=== PATIENT | female | born 1965 | race Caucasian/White ===

== ENCOUNTER 2017-06-25 16:19 | Emergency (ER) | payer BC ==
[2017-06-25] MEDS ORDERED: ASPIRIN CHEW 81 MG TABLET PO STA (16:32)
--- NOTE | 2017-06-25 16:35 | ED Physician Documentation ---
PD HPI CHEST PAIN - Stated complaint Stated Complaint: CHEST PX - Chief complaint Chief Complaint: Cardiac - History obtained from History obtained from: Patient - History of Present Illness Timing - onset: Other (51-year-old woman with history of diabetes with 2 episodes of chest pain today, both at rest.The first was from 230 to 3:00. It started at rest. It was a very sharp pain in the right breast which was nonradiating and not associated with shortness of breath, sweatiness, nausea, dizziness. It recurred on the way here briefly while driving, just a few minutes that time. She has never had this before. She was worked up about 7 years ago she says by a insurance processing clerk in [place] for different type of chest pain and the workup at that time was negative. She has no personal history of heart disease, but her father of an [place] presumably at age 57. 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 - Present Medications Home Medications: Ambulatory Orders Medication Instructions Recorded Confirmed Insulin Aspart [Novolog Flexpen] 5 units SUBQ AC 05/02/14 05/02/14 Insulin Glargine [Lantus Solostar] 15 units DAILY 05/02/14 05/02/14 Levothyroxine Sodium 50 mcg PO DAILY 05/02/14 05/02/14 Lovastatin 20 mg PO DAILY 05/02/14 05/02/14 - Allergies Allergies/Adverse Reactions: Allergies Allergy/AdvReac Type Severity Reaction Status Date / Time beef derived (bovine) AdvReac Rash Verified 06/25/17 16:30 pork derived (porcine) AdvReac Rash Verified 06/25/17 16:30 - Social History Smoking Status: Former smoker - Family History Family history: reports: Non contributory PD ED PE NORMAL - Vitals Vital signs reviewed: Yes - General General: Alert and oriented X 3, No acute distress - HEENT HEENT: PERRL, EOMI - Neck Neck: Supple, no meningeal sign, No bony TTP - Cardiac Cardiac: RRR, No murmur - Respiratory Respiratory: No respiratory distress, Clear bilaterally - Abdomen Abdomen: Soft, Non tender - Back Back: No CVA TTP, No spinal TTP - Derm Derm: Normal color, Warm and dry - Extremities Extremities: No edema, No calf tenderness / cord - Neuro Neuro: Alert and oriented X 3, Normal speech - Psych Psych: Normal mood, Normal affect Results - Vitals Vitals: Vital Signs - 24 hr 06/25/17 06/25/17 16:28 16:52 Temperature 37 C Heart Rate 84 79 Respiratory 14 20 Rate Blood Pressure 168/98 H 148/78 H O2 Saturation 99 97 Oxygen O2 Source Room air - EKG (time done) 1634 Rate: Rate (enter#) (72) Rhythm: NSR [place]: Normal Intervals: Normal [place] QRS: Normal Ischemia: Normal ST segments Computer interpretation: Agree with computer - Labs Labs: Laboratory Tests 06/25/17 06/25/17 06/25/17 16:46 16:46 16:46 WBC 7.8 RBC 5.21 Hgb 15.2 Hct 45.1 MCV 86.4 MCH 29.2 MCHC 33.8 RDW 13.4 Plt Count 272 MPV 9.6 Neut # 4.3 Lymph # 2.8 Becker # 0.6 Eos # 0.1 Baso # 0.0 Absolute Nucleated RBC 0.00 Nucleated RBCs 0.0 Sodium 142 Potassium 3.8 Chloride 106 Carbon Dioxide 29 Anion Gap 7.0 BUN 19 Creatinine 0.7 Estimated GFR (MDRD) 88 L Glucose 44 L* POC Whole Bld Glucose Calcium 10.1 Total Bilirubin 0.5 AST 21 ALT 22 Alkaline Phosphatase 75 Total Creatine Kinase 61 CK-MB (CK-2) 1.4 Troponin I < 0.04 Total Protein 8.0 Albumin 4.4 Globulin 3.6 Albumin/Globulin Ratio 1.2 Lipase 47 06/25/17 17:02 WBC RBC Hgb Hct MCV MCH MCHC RDW Plt Count MPV Neut # Lymph # Becker # Eos # Baso # Absolute Nucleated RBC Nucleated RBCs Sodium Potassium Chloride Carbon Dioxide Anion Gap BUN Creatinine Estimated GFR (MDRD) Glucose POC Whole Bld Glucose 39 L* Calcium Total Bilirubin AST ALT Alkaline Phosphatase Total Creatine Kinase CK-MB (CK-2) Troponin I Total Protein Albumin Globulin Albumin/Globulin Ratio Lipase - Rads (name of study) 1v chest Radiology: EMP read contemporaneously (normal) PD MEDICAL DECISION MAKING - ED course ED course: 51-year-old with resolved very atypical chest pain with negative EKG and cardiac markers. No recurrence of pain while in the emergency department and workup was negative save for hypoglycemia. She looks well during the episode of hypoglycemia and declined IV glucose, she says this level of hypoglycemia is not that uncommon for her and after oral glucose felt much better. Departure - Departure Disposition: Home, Self Care Clinical Impression: Chest pain Qualifiers: Chest pain type: unspecified Qualified Code(s): R07.9 - Chest pain, unspecified Condition: Good Record reviewed to determine appropriate education?: Yes Instructions: ED Chest Pain Atypical Unkn Cause Comments: As discussed it seems that the chest pain is unlikely to be from your heart or serious cause. That said return if chest pain recurs immediately, otherwise follow-up with your doctor, call tomorrow and discuss stress testing. Your blood pressure was elevated today on check into the emergency department. This does not mean that you have hypertension, it is a common phenomenon to come to the emergency department and have elevated blood pressure. I recommend that she see her primary care physician within the week to have it rechecked when you are feeling better.
[2017-06-25] MEDS ORDERED: ASPIRIN CHEW 81 MG TABLET ONE (17:08)
[2017-06-25 17:14] LABS: BASOPHILS % (AUTO) 0.5 %; EOSINOPHILS # (AUTO) 0.1 10^3/uL (0.0-0.7); EOSINOPHILS % (AUTO) 1.7 %; HCT - HEMATOCRIT 45.1 % (37.0-47.0); HGB - HEMOGLOBIN 15.2 g/dL (12.0-16.0); LYMPHOCYTES # (AUTO) 2.8 10^3/uL (1.5-3.5); LYMPHOCYTES % (AUTO) 36.1 %; MEAN CORPUSCULAR HEMOGLOBIN 29.2 pg (27.0-31.0); MEAN CORPUSCULAR HGB CONC 33.8 g/dL (32.0-36.0); MEAN CORPUSCULAR VOLUME 86.4 fL (81.0-99.0); MEAN PLATELET VOLUME 9.6 fL (7.9-10.8); MONOCYTES # (AUTO) 0.6 10^3/uL (0.0-1.0); MONOCYTES % (AUTO) 7.1 %; NEUTROPHILS # (AUTO) 4.3 10^3/uL (1.5-6.6); NEUTROPHILS % (AUTO) 54.6 %; RED BLOOD COUNT 5.21 10^6/uL (4.20-5.40); RED CELL DISTRIBUTION WIDTH 13.4 % (12.0-15.0); UNCORRECTED WHITE BLOOD COUNT 7.8 x10^3/uL; WHITE BLOOD COUNT 7.8 x10^3/uL (4.8-10.8)
--- NOTE | 2017-06-25 17:28 | XRAY Preliminary Report ---
Exam: XR Chest 1 View IMPRESSION: Normal single view chest. [facility] SITE ID: [id number]
[2017-06-25 17:30] LABS: ALBUMIN/GLOBULIN RATIO 1.2 (1.0-2.2); BILIRUBIN,TOTAL 0.5 mg/dL (0.2-1.0); CALCIUM 10.1 mg/dL (8.5-10.3); CREATININE 0.7 mg/dL (0.4-1.0); POTASSIUM 3.8 mmol/L (3.5-5.0)
--- NOTE | 2017-06-25 17:31 | XRAY Report ---
EXAM: CHEST RADIOGRAPHY EXAM DATE: 06/25/2017 05:14 PM. CLINICAL HISTORY: Chest pain. COMPARISON: 03/14/2015. TECHNIQUE: 1 view. FINDINGS: Lungs/Pleura: No focal opacities evident. No pleural effusion. No pneumothorax. Mediastinum: Within exam limitations, cardiomediastinal contour is normal. Other: No bony abnormality identified. IMPRESSION: Normal single view chest. [facility] Referring Provider Line: [phone] SITE ID: [id number]
[2017-06-25 17:33] LABS: CREATINE KINASE MB 1.4 ng/mL (0.6-6.3); TROPONIN I < 0.04 ng/mL (<0.49)
[2017-06-25 18:07] VITALS: BP 132/82
== END 2017-06-25 18:05 | disposition home or self-care (01) ==
LOC: ED 16:19
DX: R07.9 Chest pain, unspecified (principal); R03.0 Elevated blood-pressure reading, without diagnosis of hypertension; E03.9 Hypothyroidism, unspecified; E10.649 Type 1 diabetes mellitus with hypoglycemia without coma; Z82.49 Family history of ischemic heart disease and other diseases of the circulatory system; Z87.891 Personal history of nicotine dependence
CPT/HCPCS: 36415; 71010; 80053; 82550; 82553; 83690; 84484; 85025; 93005; 99283; 99285; A9270

== ENCOUNTER 2018-04-22 13:43 | Emergency (ER) | payer BC ==
[2018-04-22 13:50] VITALS: BP 123/69
== END 2018-04-22 14:07 | disposition left against medical advice (07) ==
LOC: ED 13:43
DX: Z53.21 Procedure and treatment not carried out due to patient leaving prior to being seen by health care provider (principal)
CPT/HCPCS: 99281

== ENCOUNTER 2018-07-09 07:07 | Outpatient (CLI) | payer BC ==
[2018-07-09 12:22] LABS: BUN - BLOOD UREA NITROGEN 22 mg/dL (6-20); CALCIUM 9.4 mg/dL (8.5-10.3); CARBON DIOXIDE - CO2 26 mmol/L (21-32); CHLORIDE 107 mmol/L (101-111); CHOL/HDL RATIO 2.5 (<4.4); CHOLESTEROL 202 mg/dL; CREATININE 0.8 mg/dL (0.4-1.0); GFR - MDRD 75 (>89); GLUCOSE 133 mg/dL (70-100); HDL CHOLESTEROL 80 mg/dL; LDL CHOLESTEROL,CALCULATED 110 mg/dL; LDL/HDL RATIO 1.4 (<4.4); SODIUM 140 mmol/L (135-145); VLDL CHOLESTEROL 12 mg/dL
[2018-07-09 12:26] LABS: HB2 TOTAL 15.1 g/dL; HEMOGLOBIN A1C 0.75 g/dL; HEMOGLOBIN A1C % 6.7 % (4.6-6.2)
== END 2018-07-09 07:08 | disposition home or self-care (01) ==
LOC: LAB.WCP 07:07
PROVIDERS: ATTEND Family Medicine
DX: E10.9 Type 1 diabetes mellitus without complications (principal)
CPT/HCPCS: 36415; 80048; 80061; 83036; 83721

== ENCOUNTER 2018-07-13 14:01 | Outpatient (CLI) | payer BC ==
--- NOTE | 2018-07-15 14:05 | DEXA Report ---
Reason: POSTMENOPAUSAL STATUS Procedure Date: 07/13/2018 Accession Number: [id number] / [id number] Procedure: DEX - Dexa Spine and/or Hip CPT Code: FULL RESULT: EXAM: Dexa Spine and/or Hip DATE: 07/13/2018 2:44 PM CLINICAL HISTORY: POSTMENOPAUSAL STATUS TECHNIQUE: Dual energy x-ray absorptiometry (DXA) was performed on a [employer] System. Regions measured are the AP Spine, femoral neck, and if needed forearm. COMPARISON: None. In accordance with the International Society for Clinical Densitometry (ISCD) guidelines, data from previous exams may be reanalyzed using current recommendations and techniques. This is done to allow a more accurate basis for comparison with the current study. FINDINGS: The data for the lumbar spine is as follows: BMD (g/cm/cm) T-SCORE Z-SCORE REGION L1 0.763 -3.1 -3.1 L2 0.816 -3.2 -3.2 L3 0.808 -3.3 -3.3 L4 0.780 -3.5 -3.5 TOTAL 0.793 -3.2 -3.2 NOTE: All evaluable vertebrae are used for classification The data for the hip is as follows: BMD (g/cm/cm) T-SCORE Z-SCORE REGION Neck 0.742 -2.1 -1.6 TOTAL 0.843 -1.3 -1.2 NOTE: The femoral neck or total proximal femur, whichever is lowest, is used for classification. IMPRESSION: THE WHO CLASSIFICATION BASED ON THE INTERNATIONAL REFERENCE STANDARD IS OSTEOPOROSIS. THE FRACTURE RISK IS HIGH. RECOMMENDATION: Patients with diagnosis of osteoporosis or osteopenia should have regular bone mineral density assessment. For those eligible for Medicare, routine testing is allowed once every 2 years. Testing frequency can be increased for patients who have rapidly progressing disease or for those who are receiving medical therapy to restore bone mass. COMMENT: World Health Organization (WHO) definitions for osteoporosis and osteopenia: NORMAL BMD: T-score at -1.0 or higher, fracture risk is low OSTEOPENIA BMD: T-score between -1.0 and -2.5, fracture risk is increased. OSTEOPOROSIS BMD: T-score at -2.5 or lower, fracture risk is high. National Osteoporosis Foundation recommends: 1. Obtain adequate dietary calcium (at least 1200 mg per day) and vitamin D (400-800 international units per day). 2. Participate, as appropriate, in regular weightbearing and muscle-strengthening exercise. 3. Avoid tobacco use and reduce alcohol and caffeine intake. 4. For more detailed information see the website at www.NOF.org.
== END 2018-07-13 14:02 | disposition home or self-care (01) ==
LOC: DI 14:01
PROVIDERS: ATTEND Family Medicine
DX: Z81.0 Family history of intellectual disabilities (principal)
CPT/HCPCS: 77080

== ENCOUNTER 2019-04-11 14:39 | Outpatient (CLI) | payer BC ==
--- NOTE | 2019-04-12 08:40 | Mammography Report ---
Reason: SCREENING MAMMO Procedure Date: 04/11/2019 Accession Number: [id number] / [id number] Procedure: MGN - Screening Mammo Dig Bilat CPT Code: FULL RESULT: EXAM: Screening Mammo Dig Bilat DATE: 04/11/2019 3:18 PM CLINICAL HISTORY: Screening encounter. No reported risk factors. TECHNIQUE: (B) - Bilateral CC, laterally exaggerated CC, MLO views were obtained. COMPARISON: 04/15/2012 and 03/26/2012. PARENCHYMAL PATTERN: (D) - The breast(s) demonstrate(s) heterogeneously dense fibroglandular parenchyma. FINDINGS: The left MLO view needs to be repeated for technical factors. The posterior chest wall is not included in the imaging and the area of previously probably benign left breast posterior calcifications is not identified. The right MLO view also does not contain chest wall and needs to be repeated. IMPRESSION: Incomplete examination. BI-RADS category 0. RECOMMENDATION: (REPEAT) - technical repetition of the left and right MLO views. BI-RADS CATEGORY: (0) - Incomplete Examination - need additional evaluation. STANDARD QUALIFYING STATEMENTS: 1. This examination was not reviewed with the aid of Computer-Aided Detection (CAD). 2. A negative or benign imaging report should not preclude biopsy if clinically suspicious findings are present. 3. Dense breasts may obscure an underlying neoplasm. 4. This examination was reviewed without the aid of 3D breast imaging (tomosynthesis).
== END 2019-04-11 14:40 | disposition home or self-care (01) ==
LOC: DI.N 14:39
PROVIDERS: ATTEND Family Medicine
DX: Z12.31 Encounter for screening mammogram for malignant neoplasm of breast (principal)
CPT/HCPCS: 77067

== ENCOUNTER 2019-05-30 09:16 | Day surgery (SDC) | payer BC ==
[2019-05-30] MEDS ORDERED: LACTATED RINGERS 1,000 ML IV ONE (11:04)
[2019-05-30] MEDS ORDERED: fentaNYL 250 MCG/5 ML VIAL IVP ONE (11:04)
[2019-05-30] MEDS ORDERED: MIDAZOLAM 2 MG/2 ML VIAL IVP ONE (11:04)
[2019-05-30 12:42] VITALS: BP 144/70
== END 2019-05-30 09:17 | disposition home or self-care (01) ==
LOC: SDS 09:16
PROVIDERS: ATTEND Internal Medicine Gastroenterology
PROC: 0DBN8ZZ Excision of Sigmoid Colon, Via Natural or Artificial Opening Endoscopic (ICD-10-PCS; 2019-05-30)
PROC: 0DBP8ZZ Excision of Rectum, Via Natural or Artificial Opening Endoscopic (ICD-10-PCS; 2019-05-30)
PROC: 0DBM8ZX Excision of Descending Colon, Via Natural or Artificial Opening Endoscopic, Diagnostic (ICD-10-PCS; principal; 2019-05-30 10:45)
DX: Z12.11 Encounter for screening for malignant neoplasm of colon (principal); C18.6 Malignant neoplasm of descending colon; D12.5 Benign neoplasm of sigmoid colon; K62.1 Rectal polyp; J45.20 Mild intermittent asthma, uncomplicated; E10.9 Type 1 diabetes mellitus without complications; Z79.4 Long term (current) use of insulin; Z87.891 Personal history of nicotine dependence; E66.9 Obesity, unspecified; Z68.35 Body mass index [BMI] 35.0-35.9, adult
CPT/HCPCS: 36415; 45380; 82378; J3010; J7120

== ENCOUNTER 2019-06-01 14:02 | Outpatient (CLI) | payer BC ==
[2019-06-01] MEDS ORDERED: IOVERSOL 320 100 ML VIAL IVP ONE ×2 (14:18→17:43)
[2019-06-01] MEDS ORDERED: IOVERSOL 320 50 ML VIAL ONE (14:18)
[2019-06-01] MEDS ORDERED: IOVERSOL 320 50 ML VIAL PO ONE (17:43)
--- NOTE | 2019-06-02 05:31 | CT Report ---
Reason: STAGING COLON CA Procedure Date: 06/01/2019 Accession Number: [id number] / [id number] Procedure: CT - Abdomen/Pelvis W CPT Code: FULL RESULT: EXAM: CT ABDOMEN AND PELVIS EXAM DATE: 06/01/2019 03:45 PM. CLINICAL HISTORY: STAGING COLON CA. COMPARISONS: CHEST W/ 06/01/2019 3:33 PM. TECHNIQUE: Routine helical CT imaging was performed through the abdomen and pelvis. IV contrast: 100 mL Optiray 320. Enteric contrast: Yes. Reconstructions: Coronal and sagittal. In accordance with CT protocol optimization, one or more of the following dose reduction techniques were utilized for this exam: automated exposure control, adjustment of mA and/or KV based on patient size, or use of iterative reconstructive technique. FINDINGS: Lung Bases: Unremarkable. Liver: Normal. No masses. Gallbladder/Bile Ducts: Unremarkable. Spleen: Normal. Pancreas: Normal. Adrenal Glands: Right adrenal nodule measures 2.1 cm and 63 HU. Kidneys: Duplicated right renal collecting system. No solid mass. No hydronephrosis. Peritoneal Cavity/Bowel: Small hiatal hernia. Annular mass at the splenic flexure of the colon, series 3, axial image 30, measures 4.1 cm in length, with small pericolonic lymph nodes at this level, series 3, axial image 27, largest seen on series 3, axial image 34, measuring 8 mm. Pelvic Organs: Unremarkable bladder. Anteverted uterus. Tubal ligation clips. No adnexal mass. Vasculature: No aneurysms or other significant abnormality. Bones: Superior endplate Schmorl's nodes at T11 and T12. Other: Pelvic wall scarring. IMPRESSION: 1. Annular mass at the splenic flexure, consistent with primary colonic malignancy. 2. Small pericolonic lymph nodes adjacent to the splenic flexure. Possible antonia metastases. 3. Incompletely characterized right adrenal nodule. Dedicated adrenal MRI or CT can further characterize [facility]
--- NOTE | 2019-06-02 05:36 | CT Report ---
Reason: STAGING COLON CA Procedure Date: 06/01/2019 Accession Number: [id number] / [id number] Procedure: CT - CHEST W CPT Code: FULL RESULT: EXAM: CT CHEST EXAM DATE: 06/01/2019 03:45 PM. CLINICAL HISTORY: STAGING COLON CA. COMPARISONS: None. TECHNIQUE: Routine helical CT imaging was performed through the chest. IV contrast: 100 mL Optiray 320. Reconstructions: Coronal and sagittal. In accordance with CT protocol optimization, one or more of the following dose reduction techniques were utilized for this exam: automated exposure control, adjustment of mA and/or KV based on patient size, or use of iterative reconstructive technique. FINDINGS: Lungs/Pleura: No effusions. Patent central airways. No focal opacities. Mediastinum: Cystic right thyroid lobe nodule measures 2.2 cm. Heart is normal in size. No pericardial effusion. No mediastinal or hilar lymphadenopathy. Bones: Thoracic spondylosis with marginal osteophytosis. Schmorl's nodes in the superior endplate of T11 and T12. Visualized Abdomen: Hepatic steatosis. Right adrenal nodule measures 2.2 cm. Annular mass at the splenic flexure measures 4.4 cm in length with small adjacent pericolonic lymph nodes seen. Small hiatal hernia. Other: None. IMPRESSION: 1. No evidence of metastatic disease in the chest 2. Cystic right thyroid lobe nodule could be evaluated with thyroid ultrasound. 3. Annular mass at the splenic flexure with small adjacent pericolonic lymph nodes, consistent with primary colonic malignancy and possible antonia metastases [facility]
== END 2019-06-01 14:03 | disposition home or self-care (01) ==
LOC: DI 14:02
PROVIDERS: ATTEND Internal Medicine Gastroenterology
DX: C18.5 Malignant neoplasm of splenic flexure (principal); E04.1 Nontoxic single thyroid nodule
CPT/HCPCS: 71260; 74177; Q9967

== ENCOUNTER 2019-08-24 08:00 | Outpatient (CLI) | payer BC | END 2019-08-24 23:59 | disposition home or self-care (01) | LOC: LAB.R 08:00 | PROVIDERS: ATTEND Family Medicine | DX: T81.41XA Infection following a procedure, superficial incisional surgical site, initial encounter (principal) | CPT/HCPCS: 87070; 87077; 87181; 87205 ==

== ENCOUNTER 2019-10-07 08:00 | Outpatient (CLI) | payer BC ==
[2019-10-07 18:33] LABS: BASOPHILS % (AUTO) 0.3 %; EOSINOPHILS # (AUTO) 0.1 10^3/uL (0.0-0.7); EOSINOPHILS % (AUTO) 2.1 %; HGB - HEMOGLOBIN 14.6 g/dL (12.0-16.0); LYMPHOCYTES # (AUTO) 1.3 10^3/uL (1.5-3.5); LYMPHOCYTES % (AUTO) 23.3 %; MEAN CORPUSCULAR HEMOGLOBIN 29.1 pg (27.0-31.0); MEAN CORPUSCULAR HGB CONC 33.2 g/dL (32.0-36.0); MEAN CORPUSCULAR VOLUME 87.8 fL (81.0-99.0); MEAN PLATELET VOLUME 11.6 fL (7.9-10.8); MONOCYTES # (AUTO) 0.5 10^3/uL (0.0-1.0); NEUTROPHILS # (AUTO) 3.8 10^3/uL (1.5-6.6); NEUTROPHILS % (AUTO) 66.1 %; PLT - PLATELET COUNT 311 10^3/uL (130-450); RED BLOOD COUNT 5.01 10^6/uL (4.20-5.40); RED CELL DISTRIBUTION WIDTH 14.8 % (12.0-15.0); WHITE BLOOD COUNT 5.8 x10^3/uL (4.8-10.8)
[2019-10-07 18:56] LABS: ALBUMIN 3.6 g/dL (3.2-5.5); ALBUMIN/GLOBULIN RATIO 1.1 (1.0-2.2); BILIRUBIN,TOTAL 0.6 mg/dL (0.2-1.0); CALCIUM 8.9 mg/dL (8.5-10.3); CREATININE 0.6 mg/dL (0.4-1.0); TOTAL PROTEIN 6.9 g/dL (6.7-8.2)
== END 2019-10-07 23:59 | disposition home or self-care (01) ==
LOC: LAB.N 08:00
DX: C18.9 Malignant neoplasm of colon, unspecified (principal)
CPT/HCPCS: 36415; 80053; 85025

== ENCOUNTER 2019-12-06 08:00 | Outpatient (CLI) | payer BC ==
[2019-12-06 18:58] LABS: BASOPHILS % (AUTO) 0.6 %; EOSINOPHILS # (AUTO) 0.1 10^3/uL (0.0-0.7); EOSINOPHILS % (AUTO) 2.8 %; HGB - HEMOGLOBIN 13.6 g/dL (12.0-16.0); LYMPHOCYTES # (AUTO) 1.5 10^3/uL (1.5-3.5); MEAN CORPUSCULAR HEMOGLOBIN 30.2 pg (27.0-31.0); MEAN CORPUSCULAR HGB CONC 32.2 g/dL (32.0-36.0); MEAN CORPUSCULAR VOLUME 93.8 fL (81.0-99.0); MONOCYTES # (AUTO) 0.5 10^3/uL (0.0-1.0); MONOCYTES % (AUTO) 15.2 %; NEUTROPHILS # (AUTO) 1.4 10^3/uL (1.5-6.6); NEUTROPHILS % (AUTO) 39.1 %; PLT - PLATELET COUNT 242 10^3/uL (130-450); RED BLOOD COUNT 4.51 10^6/uL (4.20-5.40); RED CELL DISTRIBUTION WIDTH 16.5 % (12.0-15.0); WHITE BLOOD COUNT 3.6 x10^3/uL (4.8-10.8)
[2019-12-06 19:14] LABS: ALBUMIN/GLOBULIN RATIO 1.2 (1.0-2.2); BILIRUBIN,TOTAL 0.2 mg/dL (0.2-1.0); CALCIUM 9.8 mg/dL (8.5-10.3); CREATININE 0.5 mg/dL (0.4-1.0); TOTAL PROTEIN 7.4 g/dL (6.7-8.2)
== END 2019-12-06 23:59 | disposition home or self-care (01) ==
LOC: LAB.N 08:00
PROVIDERS: ATTEND Internal Medicine
DX: C18.9 Malignant neoplasm of colon, unspecified (principal)
CPT/HCPCS: 36415; 80053; 85025

== ENCOUNTER 2019-12-20 15:01 | Outpatient (CLI) | payer BC ==
[2019-12-20 19:17] LABS: BASOPHILS % (AUTO) 0.2 %; EOSINOPHILS # (AUTO) 0.2 10^3/uL (0.0-0.7); EOSINOPHILS % (AUTO) 3.6 %; HGB - HEMOGLOBIN 12.6 g/dL (12.0-16.0); LYMPHOCYTES # (AUTO) 1.5 10^3/uL (1.5-3.5); LYMPHOCYTES % (AUTO) 32.9 %; MEAN CORPUSCULAR HEMOGLOBIN 30.7 pg (27.0-31.0); MEAN CORPUSCULAR HGB CONC 32.6 g/dL (32.0-36.0); MEAN CORPUSCULAR VOLUME 94.4 fL (81.0-99.0); MONOCYTES # (AUTO) 0.5 10^3/uL (0.0-1.0); MONOCYTES % (AUTO) 11.4 %; NEUTROPHILS # (AUTO) 2.3 10^3/uL (1.5-6.6); NEUTROPHILS % (AUTO) 51.7 %; PLT - PLATELET COUNT 153 10^3/uL (130-450); RED CELL DISTRIBUTION WIDTH 15.3 % (12.0-15.0); WHITE BLOOD COUNT 4.5 x10^3/uL (4.8-10.8)
[2019-12-20 19:32] LABS: ALBUMIN 3.7 g/dL (3.2-5.5); ALBUMIN/GLOBULIN RATIO 1.1 (1.0-2.2); BILIRUBIN,TOTAL 0.5 mg/dL (0.2-1.0); CALCIUM 9.3 mg/dL (8.5-10.3); CREATININE 0.7 mg/dL (0.4-1.0); TOTAL PROTEIN 7.1 g/dL (6.7-8.2)
== END 2019-12-20 15:02 | disposition home or self-care (01) ==
LOC: LAB.N 15:01
PROVIDERS: ATTEND Internal Medicine
DX: C18.9 Malignant neoplasm of colon, unspecified (principal)
CPT/HCPCS: 36415; 80053; 85025

== ENCOUNTER 2020-01-03 14:26 | Outpatient (CLI) | payer BC ==
[2020-01-03 18:47] LABS: BASOPHILS % (AUTO) 0.6 %; EOSINOPHILS # (AUTO) 0.1 10^3/uL (0.0-0.7); EOSINOPHILS % (AUTO) 2.2 %; HGB - HEMOGLOBIN 12.4 g/dL (12.0-16.0); LYMPHOCYTES # (AUTO) 1.2 10^3/uL (1.5-3.5); LYMPHOCYTES % (AUTO) 37.7 %; MEAN CORPUSCULAR HEMOGLOBIN 29.5 pg (27.0-31.0); MEAN CORPUSCULAR VOLUME 92.2 fL (81.0-99.0); MEAN PLATELET VOLUME 12.4 fL (7.9-10.8); MONOCYTES # (AUTO) 0.5 10^3/uL (0.0-1.0); MONOCYTES % (AUTO) 15.8 %; NEUTROPHILS # (AUTO) 1.4 10^3/uL (1.5-6.6); NEUTROPHILS % (AUTO) 43.4 %; PLT - PLATELET COUNT 105 10^3/uL (130-450); RED BLOOD COUNT 4.21 10^6/uL (4.20-5.40); RED CELL DISTRIBUTION WIDTH 15.3 % (12.0-15.0); WHITE BLOOD COUNT 3.2 x10^3/uL (4.8-10.8)
[2020-01-03 18:59] LABS: ALBUMIN 3.6 g/dL (3.2-5.5); ALBUMIN/GLOBULIN RATIO 1.1 (1.0-2.2); BILIRUBIN,TOTAL 0.7 mg/dL (0.2-1.0); CALCIUM 9.6 mg/dL (8.5-10.3); CREATININE 0.7 mg/dL (0.4-1.0); TOTAL PROTEIN 6.9 g/dL (6.7-8.2)
== END 2020-01-03 23:59 | disposition home or self-care (01) ==
LOC: LAB.N 14:26
PROVIDERS: ATTEND Internal Medicine
DX: C18.9 Malignant neoplasm of colon, unspecified (principal)
CPT/HCPCS: 36415; 80053; 85025

== ENCOUNTER 2020-02-02 16:00 | Outpatient (CLI) | payer BC ==
[2020-02-02 17:03] LABS: BASOPHILS % (AUTO) 0.6 %; EOSINOPHILS # (AUTO) 0.1 10^3/uL (0.0-0.7); EOSINOPHILS % (AUTO) 1.8 %; HGB - HEMOGLOBIN 14.4 g/dL (12.0-16.0); LYMPHOCYTES # (AUTO) 1.5 10^3/uL (1.5-3.5); LYMPHOCYTES % (AUTO) 29.2 %; MEAN CORPUSCULAR HEMOGLOBIN 31.4 pg (27.0-31.0); MEAN CORPUSCULAR HGB CONC 32.7 g/dL (32.0-36.0); MEAN CORPUSCULAR VOLUME 96.3 fL (81.0-99.0); MEAN PLATELET VOLUME 12.4 fL (7.9-10.8); MONOCYTES # (AUTO) 0.6 10^3/uL (0.0-1.0); MONOCYTES % (AUTO) 12.1 %; NEUTROPHILS # (AUTO) 2.8 10^3/uL (1.5-6.6); NEUTROPHILS % (AUTO) 55.9 %; PLT - PLATELET COUNT 140 10^3/uL (130-450); RED BLOOD COUNT 4.58 10^6/uL (4.20-5.40); RED CELL DISTRIBUTION WIDTH 16.1 % (12.0-15.0); WHITE BLOOD COUNT 5.1 x10^3/uL (4.8-10.8)
[2020-02-02 17:17] LABS: ALBUMIN/GLOBULIN RATIO 1.3 (1.0-2.2); BILIRUBIN,TOTAL 0.5 mg/dL (0.2-1.0); CREATININE 0.7 mg/dL (0.4-1.0); TOTAL PROTEIN 7.2 g/dL (6.7-8.2)
== END 2020-02-02 23:59 | disposition home or self-care (01) ==
LOC: LAB.WCP 16:00
PROVIDERS: ATTEND Internal Medicine
DX: C18.9 Malignant neoplasm of colon, unspecified (principal)
CPT/HCPCS: 36415; 80053; 85025

== ENCOUNTER 2020-07-26 07:37 | Outpatient (CLI) | payer BC ==
--- NOTE | 2020-07-26 16:57 | XRAY Report ---
PROCEDURE: Shoulder 3 View RT INDICATIONS: RIGHT SHOULDER PAIN TECHNIQUE: 3 views of the shoulder were acquired. COMPARISON: None. FINDINGS: Bones: No fractures or dislocations. Mild AC joint osteoarthritis. No suspicious bony lesions. Vis ualized ribs appear intact. Soft tissues: No suspicious soft tissue calcifications. IMPRESSION: Mild AC joint osteoarthritis, no trauma found. Reviewed by: John Lazaro MD on 07/26/2020 4:56 PM PDT Approved by: John Lazaro MD on 07/26/2020 4:56 PM PDT Station ID: [id number]
== END 2020-07-26 07:38 | disposition home or self-care (01) ==
LOC: DI.WCP 07:37
PROVIDERS: ATTEND Physician Assistant
DX: M75.01 Adhesive capsulitis of right shoulder (principal); M19.011 Primary osteoarthritis, right shoulder

== ENCOUNTER 2020-09-10 14:54 | Outpatient (CLI) | payer BC ==
[2020-09-10 18:01] LABS: BASOPHILS % (AUTO) 0.3 %; EOSINOPHILS # (AUTO) 0.2 10^3/uL (0.0-0.7); EOSINOPHILS % (AUTO) 2.9 %; HGB - HEMOGLOBIN 14.4 g/dL (12.0-16.0); LYMPHOCYTES # (AUTO) 1.5 10^3/uL (1.5-3.5); LYMPHOCYTES % (AUTO) 22.9 %; MEAN CORPUSCULAR HEMOGLOBIN 29.6 pg (27.0-31.0); MEAN CORPUSCULAR HGB CONC 32.7 g/dL (32.0-36.0); MEAN CORPUSCULAR VOLUME 90.7 fL (81.0-99.0); MEAN PLATELET VOLUME 11.8 fL (7.9-10.8); MONOCYTES # (AUTO) 0.5 10^3/uL (0.0-1.0); MONOCYTES % (AUTO) 7.3 %; NEUTROPHILS # (AUTO) 4.4 10^3/uL (1.5-6.6); NEUTROPHILS % (AUTO) 66.4 %; PLT - PLATELET COUNT 238 10^3/uL (130-450); RED BLOOD COUNT 4.86 10^6/uL (4.20-5.40); RED CELL DISTRIBUTION WIDTH 13.2 % (12.0-15.0); WHITE BLOOD COUNT 6.6 x10^3/uL (4.8-10.8)
[2020-09-10 18:07] LABS: ALBUMIN 4.3 g/dL (3.2-5.5); ALBUMIN/GLOBULIN RATIO 1.2 (1.0-2.2); ALKALINE PHOSPHATASE 79 IU/L (42-121); ALT ALANINE AMINOTRANSFERASE 35 IU/L (10-60); AST ASPARTATE AMINOTRANSFERASE 29 IU/L (10-42); BILIRUBIN,TOTAL 0.7 mg/dL (0.2-1.0); BUN - BLOOD UREA NITROGEN 19 mg/dL (6-20); CALCIUM 11.1 mg/dL (8.5-10.3); CARBON DIOXIDE - CO2 27 mmol/L (21-32); CHLORIDE 103 mmol/L (101-111); CHOL/HDL RATIO 2.7 (<4.4); CHOLESTEROL 254 mg/dL; CREATININE 0.7 mg/dL (0.4-1.0); GLUCOSE 126 mg/dL (70-100); HDL CHOLESTEROL 93 mg/dL; LDL CHOLESTEROL,CALCULATED 143 mg/dL; LDL/HDL RATIO 1.5 (<4.4); SODIUM 141 mmol/L (135-145); TOTAL PROTEIN 7.8 g/dL (6.7-8.2); VLDL CHOLESTEROL 18 mg/dL
[2020-09-10 18:14] LABS: CREATININE,URINE 87.8 mg/dL
[2020-09-10 18:25] LABS: HEMOGLOBIN A1c% 6.2 % (4.27-6.07); MICROALBUMIN,URINE < 0.2 mg/dL (0-300.0)
== END 2020-09-10 14:55 | disposition home or self-care (01) ==
LOC: LAB.WCP 14:54
PROVIDERS: ATTEND Family Medicine
DX: E10.9 Type 1 diabetes mellitus without complications (principal); E78.9 Disorder of lipoprotein metabolism, unspecified
CPT/HCPCS: 36415; 80053; 80061; 82043; 82570; 83036; 83721; 84443; 85025

== ENCOUNTER 2021-01-01 16:43 | Outpatient (CLI) | payer BC | END 2021-01-01 16:44 | disposition home or self-care (01) | LOC: COV 16:43 | PROVIDERS: ATTEND Family Medicine | DX: M79.10 Myalgia, unspecified site (principal); R53.83 Other fatigue; R19.7 Diarrhea, unspecified; Z20.822 Contact with and (suspected) exposure to COVID-19 ==

== ENCOUNTER 2021-02-28 10:32 | Emergency (ER) | payer BC ==
--- OUTSIDE RECORDS SUMMARY | 2021-02-28 11:03 | EXTERNAL MEDICAL SUMMARY RPT | Continuity of Care Document ---
:1965 Demographics Phone Unavailable Preferred Language Unknown Marital Status Unknown L[employer] Day Affiliation Unknown Race Unknown Ethnic Group Unknown Author Organization [facility] Address [address] [phone] Phone Social History date description facility [id number]
[2021-02-28 11:14] LABS: BASOPHILS % (AUTO) 0.3 %; EOSINOPHILS # (AUTO) 0.1 10^3/uL (0.0-0.7); EOSINOPHILS % (AUTO) 1.9 %; HCT - HEMATOCRIT 45.7 % (37.0-47.0); HGB - HEMOGLOBIN 15.1 g/dL (12.0-16.0); LYMPHOCYTES # (AUTO) 1.7 10^3/uL (1.5-3.5); LYMPHOCYTES % (AUTO) 23.3 %; MEAN CORPUSCULAR HEMOGLOBIN 29.5 pg (27.0-31.0); MEAN CORPUSCULAR VOLUME 89.4 fL (81.0-99.0); MEAN PLATELET VOLUME 11.4 fL (7.9-10.8); MONOCYTES # (AUTO) 0.5 10^3/uL (0.0-1.0); MONOCYTES % (AUTO) 6.3 %; NEUTROPHILS % (AUTO) 67.8 %; PLT - PLATELET COUNT 257 10^3/uL (130-450); RED BLOOD COUNT 5.11 10^6/uL (4.20-5.40); RED CELL DISTRIBUTION WIDTH 13.4 % (12.0-15.0); WHITE BLOOD COUNT 7.3 x10^3/uL (4.8-10.8)
[2021-02-28 11:42] LABS: ALBUMIN 4.3 g/dL (3.2-5.5); ALBUMIN/GLOBULIN RATIO 1.2 (1.0-2.2); BILIRUBIN,TOTAL 0.7 mg/dL (0.2-1.0); CALCIUM 10.1 mg/dL (8.5-10.3); CREATININE 0.8 mg/dL (0.4-1.0); POTASSIUM 4.2 mmol/L (3.5-5.0); TOTAL PROTEIN 7.9 g/dL (6.7-8.2)
[2021-02-28] MEDS ORDERED: SODIUM CHLORIDE 0.9% 1,000 ML IV STA (12:39)
[2021-02-28 12:47] LABS: BILIRUBIN,URINE NEGATIVE (NEGATIVE); CLARITY,URINE CLEAR (CLEAR); GLUCOSE, URINE (UA) 500 mg/dL (NEGATIVE); KETONES,URINE (UA) NEGATIVE (NEGATIVE); LEUKOCYTE ESTERASE, URINE NEGATIVE (NEGATIVE); NITRITE,URINE NEGATIVE (NEGATIVE); OCCULT BLOOD,URINE NEGATIVE (NEGATIVE); PROTEIN,URINE NEGATIVE (NEGATIVE); UROBILINOGEN,URINE 0.2 (NORMAL) E.U./dL (NORMAL)
--- NOTE | 2021-02-28 13:12 | ED Physician Documentation ---
History of Present Illness - Stated complaint Stated Complaint: DIARRHEA/ABD PX - Chief complaint Chief Complaint: Abd Pain - History obtained from History obtained from: Patient - Additonal information Additional information: 55-year-old woman with past medical history of diabetes presents with 2 episodes of nonbloody nonbilious nausea and vomiting 3 days ago that has since resolved as well as 3-4 episodes of diarrhea today that is nonbloody. Patient endorses diffuse abdominal cramping pain that is mild, nonradiating, constant, worse with diarrhea. Denies urinary symptoms, fever, chills, back pain shortness of breath or chest pain. Denies Covid exposure. Review of Systems Constitutional: reports: Fatigue. 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, 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 - Present Medications Home Medications: Ambulatory Orders Medication Instructions Recorded Confirmed Insulin Aspart [Novolog Flexpen] 2 units SUBQ MANAGER LOGISTIC PRN 05/02/14 02/28/21 Levothyroxine Sodium 50 mcg PO DAILY 05/02/14 02/28/21 Lovastatin 20 mg PO DAILY 05/02/14 02/28/21 Topiramate [Topamax] 50 mg PO DAILY 03/08/18 02/28/21 Alendronate [Fosamax] 1 mg ORAL ONCE 12/09/19 02/28/21 Trazodone HCl 50 mg PO QPM 12/09/19 02/28/21 - Allergies Allergies/Adverse Reactions: Allergies Allergy/AdvReac Type Severity Reaction Status Date / Time beef derived (bovine) AdvReac Rash Verified 02/28/21 10:57 pork derived (porcine) AdvReac Rash Verified 02/28/21 10:57 - Social History Does the pt smoke?: No Smoking Status: Never smoker Does the pt drink ETOH?: Yes Does the pt have substance abuse?: No - Immunizations Immunizations are current?: Yes - POLST Patient has POLST: No PD ED PE NORMAL - Vitals Vital signs reviewed: Yes - General General: Alert and oriented X 3, No acute distress, Well developed/nourished - HEENT HEENT: Atraumatic, PERRL, EOMI - Neck Neck: Supple, no meningeal sign - Cardiac Cardiac: RRR - Respiratory Respiratory: No respiratory distress, Clear bilaterally - Abdomen Abdomen: Non tender, Non distended - Back Back: No CVA TTP - Derm Derm: Normal color, Warm and dry - Extremities Extremities: No deformity - Neuro Neuro: Alert and oriented X 3 - Psych Psych: Normal mood, Normal affect Results - Vitals Vitals: Vital Signs - 24 hr 02/28/21 02/28/21 10:51 12:57 Temperature 36.8 C 36.6 C Heart Rate 89 85 Respiratory 18 16 Rate Blood Pressure 139/69 H 145/82 H O2 Saturation 99 95 Oxygen O2 Source Room air - Labs Labs: Laboratory Tests 02/28/21 02/28/21 02/28/21 11:10 11:10 12:39 WBC 7.3 RBC 5.11 Hgb 15.1 Hct 45.7 MCV 89.4 MCH 29.5 MCHC 33.0 RDW 13.4 Plt Count 257 MPV 11.4 H Neut # (Auto) 5.0 Lymph # (Auto) 1.7 [place] # (Auto) 0.5 Eos # (Auto) 0.1 Baso # (Auto) 0.0 Absolute Nucleated RBC 0.00 Nucleated RBC % 0.0 Sodium 141 Potassium 4.2 Chloride 105 Carbon Dioxide 26 Anion Gap 10.0 BUN 21 H Creatinine 0.8 Estimated GFR (MDRD) 74 L Glucose 233 H Calcium 10.1 Total Bilirubin 0.7 AST 33 ALT 39 Alkaline Phosphatase 85 Total Protein 7.9 Albumin 4.3 Globulin 3.6 Albumin/Globulin Ratio 1.2 Lipase 24 Urine Color YELLOW Urine Clarity CLEAR Urine pH 6.0 Ur Specific [place] 1.025 Urine Protein NEGATIVE Urine Glucose (UA) 500 H Urine Ketones NEGATIVE Urine Occult Blood NEGATIVE Urine Nitrite NEGATIVE Urine Bilirubin NEGATIVE Urine Urobilinogen 0.2 (NORMAL) Ur Leukocyte Esterase NEGATIVE Ur Microscopic Review NOT INDICATED Urine Culture Comments NOT INDICATED PD MEDICAL DECISION MAKING - ED course ED course: 55yF with pmh DM p/w apparent mild viral gastroenteritis. She states her diarrhea appears to be resolving and she has had no n/v today. Education given about symptomatic managemenet. Return precautions given. She will f.u with her pmd. Departure - Departure Disposition: 01 Home, Self Care Clinical Impression: Nausea and vomiting, Diarrhea, Abdominal cramping Condition: Good Instructions: ED Diarrhea Viral Comments: You were seen in the emergency department for diarrhea. It appears to be caused by a virus. Please make sure that you stay well-hydrated and get lots of rest. Monitor hands and wear a mask. Follow-up with your primary doctor this week. Return to the emergency department if you experience any new or worsening symptoms or other concerns. Discharge Date/Time: 02/28/21 13:22
[2021-02-28 13:20] VITALS: BP 145/82
== END 2021-02-28 13:22 | disposition home or self-care (01) ==
LOC: ED 10:32
DX: R19.7 Diarrhea, unspecified (principal); R10.9 Unspecified abdominal pain; E10.9 Type 1 diabetes mellitus without complications; Z79.4 Long term (current) use of insulin
CPT/HCPCS: 36415; 80053; 81001; 81003; 83690; 85025; 87086; 99282; 99283

== ENCOUNTER 2021-07-11 08:00 | Outpatient (CLI) | payer BC | END 2021-07-11 23:59 | disposition home or self-care (01) | LOC: LAB.N 08:00 | PROVIDERS: ATTEND Family Medicine | DX: R11.2 Nausea with vomiting, unspecified (principal); Z20.822 Contact with and (suspected) exposure to COVID-19 ==

== ENCOUNTER 2021-08-14 06:12 | Outpatient (CLI) | payer BC ==
[2021-08-14] MEDS ORDERED: IOVERSOL 320 50 ML VIAL ONE (07:05)
[2021-08-14] MEDS ORDERED: IOVERSOL 320 100 ML VIAL IVP ONE ×2 (07:05→11:25)
--- NOTE | 2021-08-14 09:26 | CT Report ---
PROCEDURE: Abdomen/Pelvis W INDICATIONS: ABDOMINAL PAIN, COLON ADENOCA CONTRAST: IV CONTRAST: Optiray 320 ml: 100 PO CONTRAST: Optiray 320 ml50 TECHNIQUE: After the administration of oral and intravenous contrast, 5 mm thick sections acquired from the diap hragms to the symphysis. 5 mm thick coronal and sagittal reformats were acquired. For radiation dos e reduction, the following was used: automated exposure control, adjustment of mA and/or kV accordin g to patient size. COMPARISON: June 01, 2019. FINDINGS: Inferior chest: No focal consolidation, pleural effusion, or pneumothorax. No cardiomegaly or perica rdial effusion. Gallbladder: The gallbladder is distended with a smooth thin wall. A gallbladder fold is noted. Biliary tree: No intra-or extrahepatic biliary ductal dilatation. Liver: Normal enhancement, size, and contour. Slightly decreased attenuation of the liver, which may reflect hepatic steatosis. 5.4 mm hypoattenuating lesion in the right hepatic lobe, which may reflect a cyst. Spleen: Normal enhancement, size and morphology is seen. Pancreas: Normal morphology without masses or inflammatory changes. Adrenals: Redemonstrated 1.8 cm mass in the right adrenal gland, incompletely teardrops. The left adr enal gland is unremarkable. Kidneys/ureters: Normal size and morphology. Nonobstructive calculus in the left lower pole. No solid masses or hydronephrosis. Duplicated right renal collecting system. Vasculature: No evidence of aneurysm or other significant vascular pathology. Mild atheromatous tavares e of the aorta. Lymphatic system: No pathologically enlarged lymph nodes are seen. GI/mesentery: No dilatation to suggest obstruction. Normal appendix. Suture line is seen in the left colon. Peritoneum/Retroperitoneum: No free intraperitoneal gas or large collection. Urinary bladder: The urinary bladder is distended with a smooth thin wall. Pelvic organs: No acute abnormality. Bilateral tubal ligation clips. Bones/soft tissues: Bone windows show no acute abnormality. No focal soft tissue abnormality. IMPRESSION: 1.No acute intra-abdominal/pelvic abnormality. 2.Indeterminate right adrenal gland mass, grossly unchanged. Reviewed by: Todd Dykes MD on 08/14/2021 9:24 AM PDT Approved by: Todd Dykes MD on 08/14/2021 9:24 AM PDT Station ID: [id number]
[2021-08-14] MEDS ORDERED: IOVERSOL 320 50 ML VIAL PO ONE (11:25)
== END 2021-08-14 06:13 | disposition home or self-care (01) ==
LOC: DI 06:12
PROVIDERS: ATTEND Family Medicine
DX: R10.9 Unspecified abdominal pain (principal); C18.5 Malignant neoplasm of splenic flexure; E27.8 Other specified disorders of adrenal gland

== ENCOUNTER 2021-09-26 08:04 | Outpatient (CLI) | payer BC | END 2021-09-26 23:59 | disposition home or self-care (01) | LOC: LAB.N 08:04 | PROVIDERS: ATTEND Physician Assistant | DX: R51.9 Headache, unspecified (principal); Z20.822 Contact with and (suspected) exposure to COVID-19 ==

== ENCOUNTER 2021-11-20 08:00 | Outpatient (CLI) | payer BC | END 2021-11-20 23:59 | LOC: LAB.N 08:00 | PROVIDERS: ATTEND Family Medicine | DX: R06.00 Dyspnea, unspecified (principal); Z20.822 Contact with and (suspected) exposure to COVID-19 ==

== ENCOUNTER 2023-04-22 14:37 | Outpatient (CLI) | payer OTHER ==
--- NOTE | 2023-04-23 08:54 | Ultrasound Report ---
PROCEDURE: Head or Neck Soft Tissue INDICATIONS: HYPOTHYROIDISM TECHNIQUE: Real-time scanning was performed of the thyroid gland, with image documentation. COMPARISON: Chest CT dated 05/02/2019 FINDINGS: Right: Thyroid lobe measures 3.6 x 1.8 x 2.8 cm, and is homogeneous in echotexture. Left: Thyroid lobe measures 2.8 x 1.2 x 1.0 cm, and is homogenous in echotexture. Isthmus: 4.5 mm thick. Nodule number: 1 Location: Right lobe Size: 2.6 x 1.4 x 2.3 cm. Composition: Cystic / almost completely cystic (0 points). Echogenicity: Anechoic (0 points). Shape: wider than tall. Margins: Smooth (0 points). Echogenic foci: None (0 points). Total points: 0 ACR TI-RADS category: Benign (0 points). Nodule number: 2 Location: Left lobe Size: 0.8 x 0.5 x 0.6 cm. Composition: Solid (2 points). Echogenicity: Hypoechoic (2 points).. Shape: wider than tall. Margins: Smooth (0 points). Echogenic foci: None (0 points). Total points: 4 ACR TI-RADS category: Moderately suspicious (4-6 points). Nodule number: 3 Location: Isthmus, to the right of midline Size: 1.5 x 0.9 x 1.2 cm. Composition: Solid (2 points). Echogenicity: Hypoechoic (2 points). Shape: wider than tall. Margins: Smooth (0 points). Echogenic foci: Punctate echogenic foci (3 points). Total points: 7 ACR TI-RADS category: Highly suspicious (7 points or greater). IMPRESSION: The cystic nodule is benign. Nodule 3, on the right side of the isthmus, as maximum diam eter of 1.5 cm, and has imaging characteristics which placed in the highly suspicious category. Ultra sound-guided FNA for tissue diagnosis is recommended. Please see chart below. ACR TI-RADS definitions and recommendations: TI-RADS 1 (benign): 0 points. FNA not needed. TI-RADS 2 (not suspicious): 2 points. FNA not needed. TI-RADS 3 (mildly suspicious): 3 points. "FNA if 2.5 cm or larger, follow up if 1.5 cm or larger (at 1, 3, and 5 years). TI-RADS 4 (moderately suspicious): 4-6 points. "FNA if 1.5 cm or larger, follow up if 1 cm or larger (at 1, 2, 3, and 5 years). TI-RADS 5 (highly suspicious): 7 points or more. "FNA if 1 cm or larger, follow up if 0.5 cm or larger (every year for 5 years). Reviewed by: José Miguel Doll MD on 04/23/2023 8:52 AM PDT Approved by: José Miguel Doll MD on 04/23/2023 8:52 AM PDT Station ID: [id number]
== END 2023-04-22 14:38 | disposition home or self-care (01) ==
LOC: DI 14:37
PROVIDERS: ATTEND Nurse Practitioner Family
DX: E03.9 Hypothyroidism, unspecified (principal); E04.2 Nontoxic multinodular goiter

== ENCOUNTER 2023-05-15 13:43 | Outpatient (CLI) | payer OTHER ==
[2023-05-15] MEDS ORDERED: LIDOCAINE-MPF 1% 5 ML VIAL ONE (14:14)
[2023-05-15] MEDS ORDERED: LIDOCAINE-MPF 1% 5 ML VIAL TD ONE (16:02)
--- NOTE | 2023-05-15 17:48 | Ultrasound Report ---
PROCEDURE: FNA Bx w/US Gdn 1st Les INDICATIONS: THYROID NODULE TECHNIQUE: The indications, alternatives, benefits, risks, and complications of the procedure were explained to the patient. Written informed consent was obtained and placed in the chart. The area of interest wa s examined sonographically and a site was chosen for ultrasound guided percutaneous sampling. The sk in was prepared and draped in the usual fashion, and anesthetized with 1% lidocaine infiltrated from the skin down to the lesion. Multiple passes were then performed, with contents [facility] into [facility]. A bandage was applied to the area of access at completion of t he study. COMPARISON: Thyroid ultrasound, 04/22/2023. FINDINGS: Location(s) of lesion(s) sampled: Right inferior [place]: 25 gauge hypodermic needles. Number of passes: 6 Medications: 1% lidocaine for local anaesthesia. Complications: None. IMPRESSION: Successful ultrasound-guided thyroid nodule fine needle aspiration biopsy, with cytology results pend ing. Reviewed by: Elvira Resendiz MD on 05/15/2023 5:47 PM PDT Approved by: Elvira Resendiz MD on 05/15/2023 5:47 PM PDT Station ID: [id number]
== END 2023-05-15 13:44 | disposition home or self-care (01) ==
LOC: DI 13:43
PROVIDERS: ATTEND Family Medicine
DX: E04.1 Nontoxic single thyroid nodule (principal)
CPT/HCPCS: 10005

== ENCOUNTER 2023-07-03 14:10 | Outpatient (CLI) | payer OTHER ==
[2023-07-03 18:02] LABS: BASOPHILS % (AUTO) 0.4 %; EOSINOPHILS # (AUTO) 0.3 10^3/uL (0.0-0.7); EOSINOPHILS % (AUTO) 3.1 %; HCT - HEMATOCRIT 45.8 % (37.0-47.0); HGB - HEMOGLOBIN 14.8 g/dL (12.0-16.0); LYMPHOCYTES # (AUTO) 1.9 10^3/uL (1.5-3.5); LYMPHOCYTES % (AUTO) 20.9 %; MEAN CORPUSCULAR HEMOGLOBIN 28.9 pg (27.0-31.0); MEAN CORPUSCULAR HGB CONC 32.3 g/dL (32.0-36.0); MEAN CORPUSCULAR VOLUME 89.5 fL (81.0-99.0); MEAN PLATELET VOLUME 12.3 fL (7.9-10.8); MONOCYTES # (AUTO) 0.6 10^3/uL (0.0-1.0); MONOCYTES % (AUTO) 6.4 %; NEUTROPHILS # (AUTO) 6.2 10^3/uL (1.5-6.6); NEUTROPHILS % (AUTO) 69.1 %; PLT - PLATELET COUNT 277 10^3/uL (130-450); RED BLOOD COUNT 5.12 10^6/uL (4.20-5.40); RED CELL DISTRIBUTION WIDTH 13.6 % (12.0-15.0); WHITE BLOOD COUNT 8.9 x10^3/uL (4.8-10.8)
[2023-07-03 18:15] LABS: ALBUMIN 4.3 g/dL (3.2-5.5); ALBUMIN/GLOBULIN RATIO 1.3 (1.0-2.2); ALKALINE PHOSPHATASE 81 IU/L (42-121); ALT ALANINE AMINOTRANSFERASE 35 IU/L (10-60); AST ASPARTATE AMINOTRANSFERASE 24 IU/L (10-42); BILIRUBIN,TOTAL 0.4 mg/dL (0.2-1.0); BUN - BLOOD UREA NITROGEN 22 mg/dL (6-20); CALCIUM 10.2 mg/dL (8.5-10.3); CARBON DIOXIDE - CO2 28 mmol/L (21-32); CHLORIDE 105 mmol/L (101-111); CHOL/HDL RATIO 2.7 (<4.4); CHOLESTEROL 196 mg/dL; GFR - MDRD 57 (>89); GLUCOSE 117 mg/dL (74-104); HDL CHOLESTEROL 73 mg/dL; LDL CHOLESTEROL,CALCULATED 105 mg/dL; LDL/HDL RATIO 1.4 (<4.4); POTASSIUM 4.1 mmol/L (3.5-4.5); SODIUM 139 mmol/L (135-145); TOTAL PROTEIN 7.6 g/dL (6.4-8.9); TRIGLYCERIDES 88 mg/dL (48-352); VLDL CHOLESTEROL 18 mg/dL
[2023-07-03 18:18] LABS: THYROID STIMULATING HORMONE 2.44 uIU/mL (0.34-5.60)
[2023-07-04 04:38] LABS: ESTIMATED AVERAGE GLUCOSE 128 mg/dL (70-100); HEMOGLOBIN A1c% 6.1 % (4.27-6.07)
== END 2023-07-03 14:11 | disposition home or self-care (01) ==
LOC: LAB.N 14:10
PROVIDERS: ATTEND Nurse Practitioner Family
DX: I10 Essential (primary) hypertension (principal); E66.01 Morbid (severe) obesity due to excess calories; E03.9 Hypothyroidism, unspecified; E10.9 Type 1 diabetes mellitus without complications; E78.5 Hyperlipidemia, unspecified
CPT/HCPCS: 36415; 80053; 80061; 83036; 83721; 84443; 85025

== ENCOUNTER 2024-02-26 14:44 | Outpatient (CLI) | payer OTHER ==
[2024-02-26 18:04] LABS: BASOPHILS % (AUTO) 0.2 %; EOSINOPHILS # (AUTO) 0.2 10^3/uL (0.0-0.7); EOSINOPHILS % (AUTO) 2.2 %; HCT - HEMATOCRIT 45.6 % (37.0-47.0); HGB - HEMOGLOBIN 14.4 g/dL (12.0-16.0); LYMPHOCYTES # (AUTO) 1.9 10^3/uL (1.5-3.5); LYMPHOCYTES % (AUTO) 23.6 %; MEAN CORPUSCULAR HEMOGLOBIN 28.2 pg (27.0-31.0); MEAN CORPUSCULAR HGB CONC 31.6 g/dL (32.0-36.0); MEAN CORPUSCULAR VOLUME 89.2 fL (81.0-99.0); MEAN PLATELET VOLUME 11.9 fL (7.9-10.8); MONOCYTES # (AUTO) 0.6 10^3/uL (0.0-1.0); MONOCYTES % (AUTO) 7.7 %; NEUTROPHILS # (AUTO) 5.3 10^3/uL (1.5-6.6); NEUTROPHILS % (AUTO) 66.1 %; PLT - PLATELET COUNT 272 10^3/uL (130-450); RED BLOOD COUNT 5.11 10^6/uL (4.20-5.40); RED CELL DISTRIBUTION WIDTH 13.9 % (12.0-15.0)
[2024-02-26 18:18] LABS: CREATININE,URINE 150.6 mg/dL
[2024-02-26 18:21] LABS: MICROALBUMIN,URINE < 0.7 mg/dL
[2024-02-26 18:27] LABS: ALBUMIN 4.2 g/dL (3.2-5.5); ALBUMIN/GLOBULIN RATIO 1.4 (1.0-2.2); BILIRUBIN,TOTAL 0.4 mg/dL (0.2-1.0); CALCIUM 10.2 mg/dL (8.5-10.3); CHOL/HDL RATIO 3.1 (<4.4); CHOLESTEROL 213 mg/dL; CREATININE 0.9 mg/dL (0.6-1.3); HDL CHOLESTEROL 69 mg/dL; LDL CHOLESTEROL,CALCULATED 126 mg/dL; LDL/HDL RATIO 1.8 (<4.4); POTASSIUM 4.1 mmol/L (3.5-4.5); TOTAL PROTEIN 7.2 g/dL (6.4-8.9); TRIGLYCERIDES 90 mg/dL (48-352); VLDL CHOLESTEROL 18 mg/dL
[2024-02-26 18:32] LABS: THYROID STIMULATING HORMONE 2.18 uIU/mL (0.34-5.60)
[2024-02-26 21:00] LABS: ESTIMATED AVERAGE GLUCOSE 134 mg/dL (70-100); HEMOGLOBIN A1c% 6.3 % (4.27-6.07)
== END 2024-02-26 14:45 | disposition home or self-care (01) ==
LOC: LAB.N 14:44
PROVIDERS: ATTEND Nurse Practitioner Family
DX: E10.42 Type 1 diabetes mellitus with diabetic polyneuropathy (principal); Z85.038 Personal history of other malignant neoplasm of large intestine; E78.5 Hyperlipidemia, unspecified
CPT/HCPCS: 36415; 80053; 80061; 82043; 82378; 82570; 83036; 83721; 84443; 85025

== ENCOUNTER 2024-03-02 06:11 | Day surgery (SDC) | payer OTHER ==
[2024-03-02] MEDS: LACTATED RINGERS 1,000 ML IV ONE (06:25)
--- NOTE | 2024-03-02 07:21 | ANESTHESIA ---
Pre-Anesthesia VS, & Labs - Diagnosis HX CA/SCREENING/ - Procedure COLONOSCOPY Vital Signs: Temp Pulse Resp BP Pulse Ox O2 Flow Rate 36.3 C L 81 16 129/82 H 100 03/02/24 06:29 03/02/24 06:29 03/02/24 06:29 03/02/24 06:29 03/02/24 06:29 Height: 5 ft 2 in Weight (kg): 98.5 kg Body Mass Index: 39.6 BMI Classification: Obese - NPO Last Fluid Intake: 0500 Last Food Intake: >8HR - Is Patient ?: No Home Medications and Allergies Home Medications: Ambulatory Orders Levothyroxine Sodium [Synthroid] 50 mcg PO DAILY 02/25/24 Lisinopril [Zestril] 20 mg PO DAILY 02/25/24 Insulin Aspart [Novolog Flexpen] 2 units SUBQ [employer] PRN 05/02/14 Lovastatin 20 mg PO QPM 05/02/14 Topiramate [Topamax] 50 mg PO QPM 03/08/18 Alendronate [Fosamax] 70 mg ORAL OAW 12/09/19 Trazodone HCl 100 mg PO QPM 12/09/19 Levothyroxine Sodium [Synthroid] 50 mcg PO DAILY 02/25/24 Lisinopril [Zestril] 20 mg PO DAILY 02/25/24 Allergies/Adverse Reactions: Allergies Allergy/AdvReac Type Severity Reaction Status Date / Time beef derived (bovine) AdvReac Rash Verified 02/28/21 10:57 pork derived (porcine) AdvReac Rash Verified 02/28/21 10:57 Anes History & Medical History - Anesthetic History Anesthesia Complications: reports: No previous complications Family history of Anesthesia Complications: Denies - Medical History Cardiovascular: reports: Congestive heart failure, Hypertension, High cholesterol Pulmonary: reports: Asthma (MILD, ALBUTEROL WITH COLDS) Gastrointestinal: reports: Other Urinary: reports: None Musculoskeletal: reports: Osteoarthritis, Osteoporosis Endocrine/Autoimmune: reports: Type 1 diabetes, HyPOthyroidism Skin: reports: None Smoking Status: Former smoker Psychosocial: reports: No issues indicated - Surgical History General: reports: Bowel surgery, Colonoscopy Gynecologic: reports: section Orthopedic: reports: Carpal Tunnel surgery, Other Results - EKG Results EKG Comparison: Reviewed EKG Exam General: Alert Dental: Dentures full Upper, Dentures full Lower Mouth Openin Fingerbreadth Neck Mobility: Normal Mallampati classification: II Thyromental Distance: 4-6 cm Respiratory: Lungs clear Plan Anesthesia Type: Total IV Consent for Procedure(s) Verified and Reviewed: Yes Code Status: Attempt Resuscitation ASA classification: 3-Severe systemic disease Is this case an emergency?: No
[2024-03-02] MEDS ORDERED: LIDOCAINE-MPF 2% 5 ML VIAL ONE (07:27)
[2024-03-02] MEDS ORDERED: PROPOFOL 500 MG/50 ML 500 MG/50 ML VIAL ONE (07:27)
[2024-03-02] MEDS: LACTATED RINGERS 400 ML IV ONE (08:30)
[2024-03-02 08:43] VITALS: BP 142/80; O2SAT 95
--- NOTE | 2024-03-02 13:13 | ANESTHESIA POST OP EVALUATION ---
Anesthesia Post Eval - Post Anesthesia Eval Vitals: Last Vital Signs Temp 36.4 C L 03/02/24 08:28 Pulse 84 03/02/24 08:40 Resp 14 03/02/24 08:40 BP 142/80 H 03/02/24 08:40 Pulse Ox 95 03/02/24 08:40 O2 Flow Rate CV Function Including HR & BP: Stable Pain Control: Satisfactory Nausea & Vomiting: Negative Mental Status: Baseline Respiratory Status: Airway Patent Hydration Status: Satisfactory Anesthesia Complications: None
== END 2024-03-02 06:12 | disposition home or self-care (01) ==
LOC: SDS 06:11
PROVIDERS: ATTEND Surgery
DX: Z12.11 Encounter for screening for malignant neoplasm of colon (principal); Z85.038 Personal history of other malignant neoplasm of large intestine; Z98.0 Intestinal bypass and anastomosis status; E10.42 Type 1 diabetes mellitus with diabetic polyneuropathy; E78.5 Hyperlipidemia, unspecified; F32.A Depression, unspecified; I11.0 Hypertensive heart disease with heart failure; I50.9 Heart failure, unspecified; E66.01 Morbid (severe) obesity due to excess calories; Z68.39 Body mass index [BMI] 39.0-39.9, adult; Z79.4 Long term (current) use of insulin; E03.9 Hypothyroidism, unspecified; Z87.891 Personal history of nicotine dependence; J45.909 Unspecified asthma, uncomplicated; E78.00 Pure hypercholesterolemia, unspecified
CPT/HCPCS: G0105; J7120